=== PATIENT | male | born 2000 | race Caucasian/White ===

== ENCOUNTER 2020-03-22 16:35 | Emergency (ER) | payer BC, SELFPAY ==
--- NOTE | ~2020-03-22 | CT_ITS ---
EXAMINATION: CT brain wo con DATE: 03/22/2020 17:13 INDICATION: Altered mental status. TECHNIQUE: Computed tomography (CT) of the head was performed without intravenous contrast. Sagittal and coronal reconstructions were performed. The mA was adjusted according to patient size. Iterative reconstruction technique was employed. The dose-length product was 605.33 mGy-cm. COMPARISON: None FINDINGS: No acute intracranial hemorrhage, acute infarction or abnormal extra axial fluid collection. Ventricl es are normal and symmetric. No mass/mass effect. The orbits, paranasal sinuses and mastoid air cells are normal. IMPRESSION: 1. Normal head CT Reviewed, dictated and finalized at location A. IMPRESSION: 1. Normal head CT
--- NOTE | ~2020-03-22 | XR_ITS ---
EXAMINATION: XR chest 1V portable DATE: 03/22/2020 17:10 INDICATION: Chest pain. TECHNIQUE: frontal view of the chest was obtained. COMPARISON: None FINDINGS: Patient is rotated slightly towards the left. The lungs are clear with no focal airspace opacities, p ulmonary edema, pleural effusion or pneumothorax. The cardiomediastinal silhouette is normal. Visuali zed bones and soft tissues are unremarkable. IMPRESSION: 1. Normal chest radiograph. Reviewed, dictated and finalized at location A. IMPRESSION: 1. Normal chest radiograph.
[2020-03-22 16:34] VITALS: BP 167/98; PULSE 104; RESP 20; TEMP 36.9; O2SAT 100
--- NOTE | 2020-03-22 16:44 | ECG_ITS ---
Measurements Intervals [place] Rate: 95 P: 57 AK: 142 QRS: 57 QRSD: 97 T: 24 QT: 353 QTc: 445 Interpretive Statements SINUS RHYTHM BASELINE ARTIFACT- I, II, AVR NORMAL ECG Electronically Signed On 03-23-2020 8:21:11 CDT by Jeromy Scott D.O.
[2020-03-22 17:03] LABS: Basophils Percent Auto 0.2 % (0.2-1.2); Hematocrit 47.4 % (42.0-52.0); Hemoglobin 16.6 g/dL (14.0-18.0); Immature Granulocyte Absolute 0.02 K/mm3 (0.00-0.031); Immature Granulocyte Percent A 0.2 % (0-0.5); Lymphocytes Absolute Auto 0.81 K/mm3 (0.9-3.2); Lymphocytes Percent Auto 9.7 % (18.3-44.2); Mean Corpuscular Hemoglobin 31.6 pg (26-34); Mean Corpuscular Volume 90.1 fl (80-100); Mean Platelet Volume 8.9 fl (7.4-10.4); Monocytes Absolute Auto 0.5 K/mm3 (0.1-0.6); Monocytes Percent Auto 6.4 % (2.6-8.5); Neutrophils Absolute Auto 6.9 K/mm3 (1.3-6.7); Neutrophils Percent Auto 83.5 % (45.5-73.1); Platelet Count Result 227 k/mm3 (150-375); Red Blood Count 5.26 M/mm3 (4.6-6.20); Red Cell Distribution Width 11.9 % (11.5-14.5); White Blood Count 8.3 K/mm3 (4.5-10.0)
[2020-03-22 17:13] LABS: INR 1.1; Prothrombin Time 14.2 Seconds (11.1-14.7)
[2020-03-22 17:14] LABS: Partial Thromboplastin Time 26.4 SECONDS (22.3-36.8)
[2020-03-22 17:15] LABS: Alanine Aminotransferase 20 U/L (4-50); Albumin Level 4.8 g/dL (3.5-5.1); Alkaline Phosphatase 95 U/L (38-126); Anion Gap 12 mmol/L (8-16); Aspartate Amino Transferase 25 U/L (17-59); Bilirubin,Total 0.5 mg/dL (0.2-1.3); Blood Urea Nitrogen 10 mg/dL (9-20); Calcium 9.8 mg/dL (8.4-10.2); Carbon Dioxide 30 mmol/L (22-30); Chloride 98 mmol/L (98-107); Estimated CRCL calculation 110 ml/min; Estimated Glomerular Filt Rate > 60; Glucose 104 mg/dL (75-110); Lipase 60 U/L (23-300); Sodium 140 mmol/L (137-145)
[2020-03-22] MEDS: SODIUM CHLORIDE 0.9% IV 1,000 ML 999 ML IV CONT ×2 (17:17→18:16)
[2020-03-22] MEDS: FAMOTIDINE 20 MG/2 ML VIAL IV PUSH (17:17)
[2020-03-22] MEDS: ONDANSETRON INJ 4 MG/2 ML VIAL IV PUSH (17:17)
[2020-03-22 17:22] LABS: D Dimer < 0.22 ug/mL (<0.48)
[2020-03-22 17:27] LABS: Troponin I < 0.012 ng/mL (0.000-0.034)
--- NOTE | 2020-03-22 17:29 | ED.GENADULT ---
HPI - General Adult General Chief complaint: Chest Pain Stated complaint: weakness Time Seen by Provider: 03/22/20 16:42 Source: patient and family Mode of arrival: EMS Limitations: no limitations and altered mental status History of Present Illness HPI narrative: Patient is a 20-year-old male who presents to emergency department for evaluation of altered mentation patient reportedly had been partying for the last 3 days intoxicated for the last 3 nights also has been taking Adderall noting that he snorted his Adderall last night. Patient was driving home with friends when he reportedly became anxious complained of chest pain and after which has not acted appropriately. Patient denies similar occurrence in the past or any injury or trauma. On arrival patient is alert and oriented to self that he is in the emergency department and the events in the preceding days. Patient notes alcohol use and abusing his Adderall but denies other illicit use or drug use. Patient notes he has not slept much in the last 3 days . Related Data Home Medications Medication Instructions Recorded Confirmed No Home Medications 03/22/20 03/22/20 Allergies Allergy/AdvReac Type Severity Reaction Status Date / Time No Known Allergies Allergy Verified 03/22/20 16:39 Review of Systems Review of Systems: Narrative: Somewhat limited due to clinical condition PMFSH Social History Social History (Updated 03/22/20 @ 17:31 by Rohit John PA-C) Smoking status: Never smoker Alcohol intake: current Substance use type: marijuana and amphetamines Exam Narrative: Exam Narrative: GENERAL: Well-appearing, well-nourished, and in no acute distress. HEAD: Normocephalic, atraumatic. EYES: PERRLA and EOMI. ENT: Nares clear, no rhinorrhea or epistaxis. Mucous membranes moist. Oropharynx without tonsillar hypertrophy exudate or other lesions. NECK: Supple. No adenopathy or masses. CHEST: Clear to auscultation. No respiratory distress. No wheezes rales or rhonchi HEART: Regular rate and rhythm. No murmur heard. Normal peripheral pulses. ABDOMEN: Soft, nontender, nondistended EXTREMITIES: Normal range of motion. No edema. SKIN: Warm, dry, no rash. NEURO: No focal deficits. Alert and oriented person month and location. Cerebellar intact. Cranial nerves II through XII grossly intact. Normal speech PSYCH: Normal mood and affect. Course Course Emergency Course: Patient in the room in no distress aware of case findings treatment plan and diagnosis no high risk changes in the blood work or imaging was hydrated patient is returned to normal mentation ANO x4 will be discharged into the custody of his parents. Patient was made aware of inability to drive until he is released by primary care or neurology. Mother will help facilitate follow-up with neurology and primary care. Patient was okay with his mother knowing the clinical findings mother was updated. Consultations Consultation #1: Discussed case with neurology who recommends the patient should follow-up outpatient does not recommend any medications at this time. Patient to be given driving restrictions Date: 03/22/20 Time: 18:59 Vital Signs Vital signs: Vital Signs Temperature 98.5 F 03/22/20 16:34 Pulse Rate 104 H 03/22/20 16:34 Respiratory Rate 20 03/22/20 16:34 Blood Pressure 167/98 H 03/22/20 16:34 Pulse Oximetry 100 03/22/20 16:34 Temperature 98.5 F 03/22/20 16:34 Pulse Rate 104 H 03/22/20 16:34 Respiratory Rate 20 03/22/20 16:34 Blood Pressure 167/98 H 03/22/20 16:34 Pulse Oximetry 100 03/22/20 16:34 Medical Decision Making Vital Signs Vital Signs: Vital Signs Temperature 98.5 F 03/22/20 16:34 Pulse Rate 104 H 03/22/20 16:34 Respiratory Rate 20 03/22/20 16:34 Blood Pressure 167/98 H 03/22/20 16:34 Pulse Oximetry 100 03/22/20 16:34 Temperature 98.5 F 03/22/20 16:34 Pulse Rate 104 H 03/22/20 16:34 Respiratory Rate
[2020-03-22 18:32] LABS: Add Urine Microscopic? YES; Appearance Urine Cloudy (Clear); Bilirubin Urine Negative (Negative); Blood Urine Negative (Negative); Color Urine Yellow (Yellow); Glucose Urine UA Negative (Negative); Ketones Urine Trace mg/dL (Negative); Leukocyte Esterase Ur Negative LEU/UL (Negative); Mucus Urine Rare /lpf; Nitrate Urine Negative (Negative); Protein Urine 1+ mg/dL (Negative); RBC Urine 0-2 /hpf (0-2); Specific Grav Ur 1.016 (1.001-1.035); Urobilinogen Urine Negative mg/dL (<2.0); WBC Urine 0-3 /hpf
[2020-03-22 18:42] LABS: Amphetamine Screen Urine Negative (Negative); Barbiturate Screen Urine Negative (Negative); Benzodiazepines Screen Urine Negative (Negative); Cannabinoid Screen Urine Negative (Negative); Cocaine Screen Urine Negative (Negative); Methadone Screen Urine Negative (Negative); Opiate Screen Urine Negative (Negative); Phencyclidine Screen Urine Negative (Negative)
[2020-03-22 19:31] VITALS: BP 167/90; PULSE 83; RESP 20; O2SAT 100
== END 2020-03-22 19:32 | disposition home or self-care (01) ==
PROVIDERS: Emergency Medicine Emergency Medical Services; Emergency Provider Emergency Medicine; PCP Family Medicine
DX: R41.82 Altered mental status, unspecified (principal)
CPT/HCPCS: 36415; 70450; 71045; 80053; 80307; 81001; 83690; 84484; 85025; 85380; 85610; 85730; 93005; 96361; 96365; 96375; 99284; J0131; J2405; J7030

== ENCOUNTER 2021-03-15 00:36 | Emergency (ER) | payer BC, SELFPAY ==
--- NOTE | ~2021-03-15 | CT_ITS ---
EXAMINATION: CT brain wo con EXAM DATE: 03/15/2021 02:27 INDICATION: Head trauma, left supraorbital contusion. Loss of consciousness. Resolving memory loss. TECHNIQUE: Spiral CT of the head was performed without contrast. Axial, coronal and sagittal images were reviewed. The dose-length product (DLP) for this examination was 681.00 mGy-cm. The exposure w as tailored according to patient size, and iterative reconstruction (ASIR) was used as additional dos e reduction technique. Comparison is made to prior examination from 03/22/2020. FINDINGS: There is no acute intraparenchymal hemorrhage. No evidence of intraparenchymal brain mass lesion. No evidence of acute infarction. There is no mass effect or midline shift. The ventricles are normal in size. There are no extra-axial collections. There are no acute calvarial fractures. T he orbits are unremarkable. There is moderate sized left frontal scalp contusion/hematoma without un derlying fracture. Both globes were imaged and appear intact. The visualized sinuses and mastoid air cells are well aerated. IMPRESSION: 1. No acute intracranial findings. 2. Sizable left frontal scalp contusion/hematoma. Reviewed, dictated and finalized at location A.
[2021-03-15 00:40] VITALS: BP 134/77; PULSE 100; RESP 20; TEMP 36.6; O2SAT 97
--- NOTE | 2021-03-15 01:24 | PC.NURSE ---
pt requesting update on wait time. explained this RN unable to provide wait times. pt then asked If I leave right now is there a charge? This RN explained that since we have no connection to billing, I was unable to tell pt what or if he would be charged. Pt then requested I get someone who would know, and this RN called ED Registration to to speak c pt.
--- NOTE | 2021-03-15 01:30 | PC.NURSE ---
Pt now decides to be seen. went to get his gf from vehicle and escorted to room 4.
--- NOTE | 2021-03-15 01:49 | PC.NURSE ---
Patient does admit to drinking this evening as well. ERP in room.
--- NOTE | 2021-03-15 02:07 | ED.HEATRA ---
HPI - Head Injury General Chief complaint: Head Injury Stated complaint: head injury Time Seen by Provider: 03/15/21 01:34 History of Present Illness HPI Narrative: Patient is a 20-year-old male who presents ER status post head injury. Reports he was wrestling with some friends after drinking when he struck his head on the ground. He has a hematoma to his left eyebrow. He reports 15 minutes of amnesia that was witnessed by friends. He also had loss of urine. No witnessed seizure activity. Patient is on blood thinners. Related Data Home Medications Medication Instructions Recorded Confirmed sertraline 50 mg PO DAILY 03/15/21 Allergies Allergy/AdvReac Type Severity Reaction Status Date / Time No Known Allergies Allergy Verified 03/15/21 00:45 Review of Systems Review of Systems: All systems reviewed & are unremarkable except as noted in HPI and below Constitutional: Constitutional: Denies chills, Denies fever(s) and Denies weakness Eyes: Eyes: Denies change in vision and Denies photophobia Respiratory: Respiratory: Denies cough and Denies dyspnea Gastrointestinal: Gastrointestinal: Denies abdominal pain, Denies nausea and Denies vomiting Neurologic: Denies headache(s), Denies focal weakness and Denies numbness Comments: Amnesia PMFSH Past Medical History Medical History (Updated 03/15/21 @ 03:28 by Tanmay Murphy MD) Healthy adult male Surgical History Surgical History (Updated 03/15/21 @ 02:08 by Tanmay Murphy MD) No history of previous surgery Social History Social History (Updated 03/22/20 @ 17:31 by Rohit John PA-C) Smoking status: Never smoker Alcohol intake: current Substance use type: marijuana and amphetamines Exam Narrative: GENERAL: Mildly intoxicated, well-nourished, and in no acute distress. HEAD: Normocephalic, hematoma left supraorbital ridge. EYES: PERRL and EOMI. ENT: Mucous membranes moist. NECK: Supple. CHEST: Clear to auscultation. No respiratory distress. HEART: Regular rate and rhythm. Normal peripheral pulses. ABDOMEN: Soft, nontender, nondistended. EXTREMITIES: Normal range of motion. No edema. SKIN: Warm, dry, no rash. NEURO: No focal deficits. Alert and oriented x3. Course Course Emergency Course: CT negative. Discharge home. Vital Signs Vital signs: Vital Signs Temperature 97.9 F 03/15/21 00:40 Pulse Rate 100 03/15/21 00:40 Respiratory Rate 20 03/15/21 00:40 Blood Pressure 134/77 03/15/21 00:40 Pulse Oximetry 97 03/15/21 00:40 Temperature 97.9 F 03/15/21 00:40 Pulse Rate 100 03/15/21 00:40 Respiratory Rate 20 03/15/21 00:40 Blood Pressure 134/77 03/15/21 00:40 Pulse Oximetry 97 03/15/21 00:40 MDM - Head Injury Imaging Data Radiologist's impression: CT brain: Left forehead contusion. No skull fracture seen. No intracranial hemorrhage or infarct identified. Discharge Plan Discharge Clinical Impression: Concussion, Contusion of forehead Patient Disposition: Home, Self-Care Condition: Stable Instructions: Concussion (ED) Additional Instructions: Return to the ER if you have chest pain or shortness of breath, you cannot keep down food or water, you lose consciousness, you have additional concerns. Prescriptions: No Action sertraline 50 mg tablet 50 mg PO DAILY RF: 0 Follow-up/Referrals: PHYSICIAN,TOOL ENGINE [employer] SET UP OPERATOR [Primary Care Provider] - Sonu Ramírez MD [Physician] - 1 Week
== END 2021-03-15 03:37 | disposition home or self-care (01) ==
PROVIDERS: Emergency Provider Emergency Medicine
DX: S06.0X9A Concussion with loss of consciousness of unspecified duration, initial encounter (principal); S00.83XA Contusion of other part of head, initial encounter; W22.09XA Striking against other stationary object, initial encounter
CPT/HCPCS: 70450; 99284